=== PATIENT | female | born 1985 | race Hispanic/Latino ===

== ENCOUNTER 2018-07-05 20:00 | Emergency (ER) | payer OTHER ==
[~2018-07-05] VITALS: Ht 165.1 cm; Wt 145.1 kg
[2018-07-05] MEDS ORDERED: ALBUTEROL/IPRATROPIUM 3 ML NEB NEB ONE (20:30)
== END 2018-07-05 21:30 | disposition home or self-care (01) ==
LOC: FSED 20:00
DX: R05 Cough (principal); J20.9 Acute bronchitis, unspecified
CPT/HCPCS: 99283

== ENCOUNTER 2022-07-30 20:44 | Emergency (ER) | payer BC, OTHER ==
[~2022-07-30] VITALS: Ht 165.1 cm; Wt 143.3 kg
[2022-07-30] MEDS ORDERED: ONDANSETRON HCL INJ 2MG/ML 2ML 2 MG/ML VIAL IV STA (21:13)
[2022-07-30] MEDS ORDERED: SODIUM CHLORIDE 0.9% 1000ML 1,000 ML IV ONE (21:15)
[2022-07-30] MEDS ORDERED: SODIUM CHLORIDE 0.9% 1000ML 1,000 ML ONE (21:37)
[2022-07-30] MEDS ORDERED: KETOROLAC TROMETHAMINE 30 MG/ML VIAL IV STA (21:45)
[2022-07-30] MEDS ORDERED: ONDANSETRON ODT4 MG PO (21:59)
[2022-07-30 22:22] VITALS: BP 126/80
== END 2022-07-30 22:22 | disposition home or self-care (01) ==
LOC: FSED 20:48
DX: R42 Dizziness and giddiness (principal); R51.9 Headache, unspecified; R11.0 Nausea; E66.01 Morbid (severe) obesity due to excess calories
CPT/HCPCS: 80048; 81025; 85025; 87400; 93005; 96374; 99283; J2405; J7030